=== PATIENT | male | born 1960 | race Caucasian/White ===

== ENCOUNTER 2017-09-26 13:53 | Emergency (ER) | payer OTHER ==
[~2017-09-26] VITALS: Ht 185.4 cm; Wt 103.0 kg
[~2017-09-26 13:53] MED LIST: LORT5TAB PO; Z.0.NO CURRENT MEDS
[2017-09-26 14:02] VITALS: BP 148/88; PULSE 120; RESP 16; TEMP 97.8; O2SAT 96
[2017-09-26] MEDS ORDERED: TETANUS/DIPHTHERIA TOXOID ADULT 0.5 ML VIAL IM ONE (14:30)
--- NOTE | 2017-09-26 15:09 | PD ---
HPI Chief Complaint: Laceration/Skin Injury Time Seen by Provider: 14:18 Travel History International Travel<30 days: No Contact w/Intl Traveler<30days: No Traveled to known affect area: No History of Present Illness HPI 57-year-old male presents emergency department for evaluation of laceration to the right lower extremity near the dudley. Says that he was moving a glass when a piece of glass cut his dudley. Says he immediately wrapped the area and presents emergency department today. He denies any numbness tingling. Says he is full range of motion of his extremity. He does not believe he has a foreign body as the entire piece of glass was intact after the incident. He has no other complaints today. [facility] Past Medical History Medical History: Denies Significant Hx Tetanus Vaccination: > 5 Years Influenza Vaccination: No Past Surgical History Abdominal Surgery: Yes (left groin hernia repair) Other Surgery: Yes (HERNIA) Social History Alcohol Use: Yes (occas. beer) Tobacco Use: Yes (1/2 -1 PPD) Substance Use: No Allergies-Medications (Allergen,Severity, Reaction): Coded Allergies: No Known Allergies (Verified Adverse Reaction, Unknown, 09/26/17) Reported Meds & Prescriptions Reported Meds & Active Scripts Active Keflex (Cephalexin) 500 Mg Cap 500 Mg PO Q12H 5 Days Review of Systems Except as stated in HPI: all other systems reviewed are Neg Physical Exam Narrative GENERAL: Well-nourished, well-developed patient, in NAD SKIN: Focused skin assessment warm/dry. No rashes or lesions. Right lower extremity-lower half of dudley just lateral with a 3 cm x 3 cm area of avulsion. Skin partially retracted. HEAD: Normocephalic. Atraumatic. EYES: No scleral icterus. No injection or drainage. PERRLA, EOMI THROAT: No pharyngeal injection, exudates, or tonsillar hypertrophy. Airway is patent. NECK: Supple, trachea midline. No JVD or lymphadenopathy. No meningismus. MUSCULOSKELETAL: No cyanosis, or edema. Right lower extremity neurovascular intact. BACK: Nontender without obvious deformity. No CVA tenderness. Data Data Last Documented VS Vital Signs Date Time Temp Pulse Resp B/P (MAP) Pulse Ox O2 Delivery O2 Flow Rate FiO2 09/26/17 14:20 16 09/26/17 14:02 97.8 120 148/88 (108) 96 Orders Orders Tetanus/Diphtheria Tox Adult (Tetanus/Di (09/26/17 14:30) Ed Discharge Order (09/26/17 15:14) MDM Medical Decision Making Medical Screen Exam Complete: Yes Emergency Medical Condition: Yes Differential Diagnosis Right lower extremity avulsion, laceration, abrasion Narrative Course 57-year-old male presents emergency department for evaluation of laceration to the right lower extremity near the dudley. Says that he was moving a glass when a piece of glass cut his dudley. Says he immediately wrapped the area and presents emergency department today. He denies any numbness tingling. Says he is full range of motion of his extremity. He does not believe he has a foreign body as the entire piece of glass was intact after the incident. He has no other complaints today. Vital signs are stable. Tetanus administered. Exam findings consistent with an avulsion to the right lower extremity located just lateral of the lower dudley. Neurovascular intact. Bleeding controlled. No evidence of deep tissue involvement. Laceration repair completed. I suspect that the avulsion flap likely not survive. I counseled the patient regarding expectations of the wound. He states understanding. Xeroform gauze applied to the area to assist healing. Keflex for prophylactic antibiotics. Wound care advised. Suture removal 7-10 days. Procedures Procedure Narrative LACERATION LOCATION: Right lower extremity anterior dudley LENGTH: 3 cm x 3 cm avulsion NUMBER OF STITCHES/STEPAN: 9 REPAIR: The area of the laceration was prepped with Betadine and sterilely draped. The laceration was infiltrated with 1% lidocaine without epinephrine. The wound was copiously irrigated and explored without evidence of foreign body, tendon injury or neurovascular injury. The wound was closed using 5-0 Prolene. This was a single layer repair. A sterile dressing was applied with Xeroform. The patient was advised to keep the dressing clean and dry. Patient tolerated the procedure well. Diagnosis Primary Impression: Avulsion of skin Referrals: Primary Care Physician Departure Forms: Tests/Procedures, Work Release Enter return to work date: September 29, 2017 Additional Instructions: Follow up with your primary care physician within 2-3 days. Keep area clean and dry for 24 hours. After 24 hours, you may bathe as normal but dry the area thoroughly. You may remove the Xeroform dressing in 2-3 days or if the area becomes soiled. Change dressings daily. If bleeding starts, apply pressure and elevate the area. If you developed increased redness, swelling, or pain return to the emergency department as this could be a sign of infection. Suture removal in 7-10 days. Scripts Cephalexin (Keflex) 500 Mg Cap 500 MG PO Q12H for Infection for 5 Days, #10 CAP 0 Refills Prov: Pj De La Cruz MD 09/26/17 Disposition: 01 DISCHARGE HOME Condition: Stable Anayeli Andrews September 26, 2017 15:09
[2017-09-26] MEDS ORDERED: CEPH-460 PO (15:10)
== END 2017-09-26 15:37 | disposition home or self-care (01) ==
LOC: PHEFT 13:53
DX: S81.811A Laceration without foreign body, right lower leg, initial encounter (principal); W25.XXXA Contact with sharp glass, initial encounter; F17.200 Nicotine dependence, unspecified, uncomplicated
CPT/HCPCS: 12002; 90471; 90714